=== PATIENT | male | born 1980 | race Asian ===

== ENCOUNTER 2018-11-23 22:40 | Emergency (ER) | payer OTHER ==
[~2018-11-23] VITALS: Ht 170.2 cm; Wt 79.4 kg
--- NOTE | 2018-11-23 23:25 | NUR ---
DR. MCKEON AT BEDSIDE FOR MSE.
--- NOTE | 2018-11-24 01:04 | NUR ---
Patient discharged to home in stable conditon. Written and verbal after care instructions given. Patient verbalizes understanding of instructions. PATIENT LEFT WITH STABLE GAIT.
[2018-11-24 01:05] VITALS: BP 137/88
[2018-11-25 05:08] LABS: HEPATITIS B SURFACE AB Non Reactive (.); HEPATITIS B SURFACE AG Negative (Negative)
== END 2018-11-24 01:05 | disposition home or self-care (01) ==
LOC: ER 22:43
DX: Z77.21 Contact with and (suspected) exposure to potentially hazardous body fluids (principal)
CPT/HCPCS: 36415; 86706; 86803; 87340; 87806; A4663

== ENCOUNTER 2020-01-23 00:43 | Emergency (ER) | payer BC, OTHER ==
[~2020-01-23] VITALS: Ht 170.2 cm; Wt 81.6 kg
--- NOTE | 2020-01-23 01:00 | NUR ---
at bedside for MSE
--- NOTE | 2020-01-23 01:08 | NUR ---
public health technician at bedside
[2020-01-23] MEDS ORDERED: IBUPROFEN 400 MG TABLET ONE (01:09)
[2020-01-23] MEDS ORDERED: IBUPROFEN 400 MG TABLET PO ONE (01:15)
--- NOTE | 2020-01-23 01:52 | NUR ---
Patient discharged to home in stable condition. Written and verbal after care instructions given. Patient verbalizes understanding of instructions. Stressed follow up or return to ER for worsening s/s. Pt
[2020-01-23 01:53] VITALS: BP 141/90
== END 2020-01-23 01:54 | disposition home or self-care (01) ==
LOC: ER 00:47
DX: S93.402A Sprain of unspecified ligament of left ankle, initial encounter (principal); X50.1XXA Overexertion from prolonged static or awkward postures, initial encounter; Y92.89 Other specified places as the place of occurrence of the external cause
CPT/HCPCS: 73610; A4663